=== PATIENT | male | born 1945 | race Caucasian/White ===

== ENCOUNTER 2017-12-09 08:00 | Outpatient (RCR) | payer MEDICARE, BC | END 2017-12-09 08:30 | disposition home or self-care (01) | LOC: PT 08:00 | DX: M75.122 Complete rotator cuff tear or rupture of left shoulder, not specified as traumatic (principal) | CPT/HCPCS: G8985-GP ==

== ENCOUNTER → 2018-02-24 | Outpatient (CLI) | payer MEDICARE, BC | LOC: CARDREHAB 07:48 → CARDLAB 13:10 | DX: R00.1 Bradycardia, unspecified (principal) ==

== ENCOUNTER → 2018-02-27 | Outpatient (CLI) | payer MEDICARE, BC | LOC: RAD 12:00 → VAS 12:00 | DX: I08.0 Rheumatic disorders of both mitral and aortic valves (principal) ==

== ENCOUNTER → 2024-05-16 | Outpatient (CLI) | payer MEDICARE, BC | LOC: RAD 08:57 | DX: M25.561 Pain in right knee (principal) ==